=== PATIENT | male | born 2000 | race Caucasian/White ===

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

== ENCOUNTER → 2020-01-26 | Outpatient (REF) | payer BC ==
[~2020-01-26] MED LIST changes: +OMEP1CAP73; -OMEP20CA4; +ZONI25CA13; -ZONI25CA2
[2020-01-26 13:31] LABS: HEMATOCRIT 46.9 % (42.0-52.0); HEMOGLOBIN 15.4 g/dl (13.5-17.5); MEAN CORPUSCULAR HEMOGLOBIN 30.7 pg (27.0-33.0); MEAN CORPUSCULAR HGB CONC 32.8 g/dl (32.0-36.5); MEAN CORPUSCULAR VOLUME 93.6 fl (80.0-96.0); PLATELET COUNT, AUTOMATED 184 10^3/uL (150-450); RED BLOOD COUNT 5.01 10^6/uL (4.30-6.10); WHITE BLOOD COUNT 6.7 10^3/uL (4.0-10.0)
[2020-01-26 14:18] LABS: ALBUMIN 4.1 GM/DL (3.2-5.2); ALT/SGPT 18 U/L (12-78); BILIRUBIN,TOTAL 0.5 MG/DL (0.2-1.0); BLOOD UREA NITROGEN 18 MG/DL (7-18); CALCIUM LEVEL 9.4 MG/DL (8.5-10.1); CARBON DIOXIDE LEVEL 32 MEQ/L (21-32); CHLORIDE LEVEL 105 MEQ/L (98-107); CREATININE FOR GFR 0.91 MG/DL (0.70-1.30); FREE T4 0.82 NG/DL (0.78-1.33); GLUCOSE, FASTING 51 MG/DL (70-100); POTASSIUM SERUM 4.7 MEQ/L (3.5-5.1); SODIUM LEVEL 140 MEQ/L (136-145); TOTAL PROTEIN 7.6 GM/DL (6.4-8.2)
== END ==
LOC: M SFHCADAM 10:11
PROVIDERS: ATTEND Family Medicine
DX: R41.840 Attention and concentration deficit (principal); F43.22 Adjustment disorder with anxiety; I10 Essential (primary) hypertension

== ENCOUNTER 2020-11-06 23:19 | Emergency (ER) | payer BC ==
[~2020-11-06] VITALS: Ht 188 cm; Wt 67.6 kg
[2020-11-07] MEDS ORDERED: IBUPROFEN 800 MG TAB PO ONE (00:50)
--- NOTE | 2020-11-07 02:39 | REPVR ---
PROCEDURE INFORMATION: Exam: XR Right Knee Exam date and time: 11/07/2020 1:48 AM Age: 20 years old Clinical indication: Other: Pain after hiking, HX of surgery TECHNIQUE: Imaging protocol: XR Right knee. Views: 4 or more views. COMPARISON: No relevant prior studies available. FINDINGS: Bones/joints: Joint spaces are normal. No fracture or malalignment. Soft tissues: Normal. IMPRESSION: No fracture or malalignment. Electronically signed by: Solitario Rodriguez On 11/07/2020 02:38:57 AM
[2020-11-07 03:22] VITALS: BP 156/86
== END 2020-11-07 03:23 | disposition home or self-care (01) ==
LOC: M ED 23:19
DX: M25.561 Pain in right knee (principal); I10 Essential (primary) hypertension

== ENCOUNTER → 2021-09-20 | Outpatient (REF) | payer BC ==
[2021-09-20 16:04] LABS: HEMATOCRIT 44.9 % (42.0-52.0); HEMOGLOBIN 15.9 g/dl (13.5-17.5); MEAN CORPUSCULAR HEMOGLOBIN 32.4 pg (27.0-33.0); MEAN CORPUSCULAR HGB CONC 35.4 g/dl (32.0-36.5); MEAN CORPUSCULAR VOLUME 91.6 fl (80.0-96.0); PLATELET COUNT, AUTOMATED 214 10^3/uL (150-450)
[2021-09-20 19:41] LABS: ALBUMIN 4.2 GM/DL (3.2-5.2); ALT/SGPT 21 U/L (12-78); BILIRUBIN,TOTAL 0.3 MG/DL (0.2-1.0); BLOOD UREA NITROGEN 19 MG/DL (7-18); CALCIUM LEVEL 8.9 MG/DL (8.5-10.1); CARBON DIOXIDE LEVEL 30 MEQ/L (21-32); CHLORIDE LEVEL 105 MEQ/L (98-107); CREATININE FOR GFR 0.86 MG/DL (0.70-1.30); GLOMERULAR FILTRATION RATE > 60.0 (>60); GLUCOSE, FASTING 90 MG/DL (70-100); POTASSIUM SERUM 3.8 MEQ/L (3.5-5.1); SODIUM LEVEL 139 MEQ/L (136-145); TOTAL PROTEIN 7.6 GM/DL (6.4-8.2)
== END ==
LOC: M SFHCADAM 14:19
PROVIDERS: ATTEND Family Medicine
DX: F43.22 Adjustment disorder with anxiety (principal); F90.8 Attention-deficit hyperactivity disorder, other type; R25.1 Tremor, unspecified; R63.4 Abnormal weight loss; I10 Essential (primary) hypertension